=== PATIENT | female | born 1995 | race Caucasian/White ===

== ENCOUNTER 2019-02-12 21:10 | Emergency (ER) | payer SELFPAY ==
[~2019-02-12] VITALS: Ht 157.5 cm; Wt 105.0 kg
[2019-02-12] MEDS ORDERED: ACETAMINOPHEN 500MG TABLET PO ONE (22:45)
[2019-02-12] MEDS: BACITRACIN 15GM TUBE TOP NR (23:17)
[2019-02-12 23:25] VITALS: BP 148/89
[2019-02-13] MEDS: BACITRACIN 15GM TUBE TOP NR (01:25)
== END 2019-02-12 23:30 | disposition home or self-care (01) ==
LOC: ER 21:10
DX: S67.22XA Crushing injury of left hand, initial encounter (principal); S67.195A Crushing injury of left ring finger, initial encounter; S61.304A Unspecified open wound of right ring finger with damage to nail, initial encounter; W23.0XXA Caught, crushed, jammed, or pinched between moving objects, initial encounter; Y93.89 Activity, other specified; Y92.89 Other specified places as the place of occurrence of the external cause; Y99.8 Other external cause status
CPT/HCPCS: 73130; 81025; 99283